=== PATIENT | male | born 1955 | race Hispanic/Latino ===

== ENCOUNTER 2019-11-02 10:06 | Emergency (ER) | payer OTHER, MEDICARE ==
[2019-11-02] MEDS ORDERED: Oxymetazoline HCl 0.05% (30 ML BOT) ONE (11:31)
[2019-11-02 11:39] LABS: #Basophils 0.1 thou/uL (0.0-0.2); #Eosinphils 0.2 thou/uL (0.0-0.7); #Lymphocytes 1.2 thou/uL (1.20-3.40); #Monocytes 1.2 thou/uL (0.11-0.59); #Neutrophils 10.4 thou/uL (1.40-6.50); %Basophils 0.5 % (0.0-1.0); %Eosinophils 1.6 % (0.0-10.0); %Lymphocytes 8.9 % (21.0-51.0); %Monocytes 8.9 % (0.0-10.0); %Neutrophils 80.1 % (42.0-75.0); Hemoglobin 9.6 g/dL (14.0-18.0); Mean Corpuscular HGB CONC 31.7 g/dL (32.0-36.0); Mean Corpuscular Hemoglobin 29.6 pg (27.0-31.0); Mean Corpuscular Volume 93.4 fL (78.0-98.0); Mean Platelet Volume 7.8 fL (7.4-10.4); Platelet Count 305 thou/uL (130-400); RBC Distribution Width 16.6 % (11.5-14.5); Red Blood Cell (RBC) Count 3.26 mill/uL (4.70-6.10); White Blood Cell (WBC) Count 12.9 thou/uL (4.8-10.8)
[2019-11-02 11:47] LABS: INR-International Normal Ratio 1.5; Prothrombin Time 17.6 sec (12.0-14.7)
[2019-11-02 11:48] LABS: PTT 40.1 sec (22.9-36.1)
== END 2019-11-02 13:14 | disposition home or self-care (01) ==
LOC: ERS 10:06
DX: R04.0 Epistaxis (principal); I11.0 Hypertensive heart disease with heart failure; I50.9 Heart failure, unspecified; F17.220 Nicotine dependence, chewing tobacco, uncomplicated; Z79.891 Long term (current) use of opiate analgesic; Z79.899 Other long term (current) drug therapy; Z86.718 Personal history of other venous thrombosis and embolism
CPT/HCPCS: 36415; 85025; 85610; 85730; 93005

== ENCOUNTER 2019-11-10 15:22 | Inpatient (IN) | payer OTHER, MEDICARE ==
[2019-11-10 16:17] LABS: #Eosinphils 0.5 thou/uL (0.0-0.7); #Lymphocytes 1.5 thou/uL (1.20-3.40); #Monocytes 0.9 thou/uL (0.11-0.59); #Neutrophils 7.8 thou/uL (1.40-6.50); %Basophils 0.2 % (0.0-1.0); %Eosinophils 4.4 % (0.0-10.0); %Lymphocytes 14.2 % (21.0-51.0); %Monocytes 8.5 % (0.0-10.0); %Neutrophils 72.7 % (42.0-75.0); Mean Corpuscular HGB CONC 30.5 g/dL (32.0-36.0); Mean Corpuscular Hemoglobin 28.1 pg (27.0-31.0); Mean Corpuscular Volume 92.1 fL (78.0-98.0); Mean Platelet Volume 6.8 fL (7.4-10.4); Platelet Count 358 thou/uL (130-400); RBC Distribution Width 16.2 % (11.5-14.5); Red Blood Cell (RBC) Count 2.83 mill/uL (4.70-6.10); White Blood Cell (WBC) Count 10.7 thou/uL (4.8-10.8)
[2019-11-10 16:38] LABS: ALT (SGPT) 10 U/L (8-55); AST (SGOT) 30 U/L (5-34); Albumin 2.7 g/dL (3.4-4.8); Alkaline Phosphatase 94 U/L (40-110); Anion Gap 11 mmol/L (10-20); BUN (Urea Nitrogen) 24 mg/dL (8.4-25.7); Bilirubin, Total 0.3 mg/dL (0.2-1.2); Calc. Creatinine Clearance 0 mL/min (70-130); Calcium 7.4 mg/dL (7.8-10.44); Carbon Dioxide 27 mmol/L (23-31); Chloride 101 mmol/L (98-107); Estimated GFR-MDRD 39; Glucose 111 mg/dL (80-115); Lipase 95 U/L (8-78); Potassium 3.5 mmol/L (3.5-5.1); Protein, Total 5.7 g/dL (5.8-8.1); Sodium 135 mmol/L (136-145)
[2019-11-10] MEDS ORDERED: Pantoprazole 40 MG VIAL ONE (16:42)
[2019-11-10] MEDS ORDERED: Pantoprazole 80 MG, Admixture Fee 1 EACH in Sodium Chloride 0.9% 100 ML IVPB SCH (16:45)
[2019-11-10 18:02] LABS: Hemoglobin 7.9 g/dL (14.0-18.0); Platelet Count 399 thou/uL (130-400)
--- NOTE | 2019-11-10 18:31 | PDOC.HHP ---
Hospitalist Results - Labs Result Diagrams: 11/10/19 17:40 11/10/19 16:07 Lab results: WBC 10.7 thou/uL (4.8-10.8) 11/10/19 16:07 Hgb 7.9 g/dL (14.0-18.0) L 11/10/19 17:40 Hct 26.0 % (42.0-52.0) L 11/10/19 17:40 MCV 92.1 fL (78.0-98.0) 11/10/19 16:07 Plt Count 399 thou/uL (130-400) 11/10/19 17:40 Neutrophils % 72.7 % (42.0-75.0) 11/10/19 16:07 Sodium 135 mmol/L (136-145) L 11/10/19 16:07 Potassium 3.5 mmol/L (3.5-5.1) 11/10/19 16:07 Chloride 101 mmol/L (98-107) 11/10/19 16:07 Carbon Dioxide 27 mmol/L (23-31) 11/10/19 16:07 BUN 24 mg/dL (8.4-25.7) 11/10/19 16:07 Creatinine 1.76 mg/dL (0.7-1.3) H 11/10/19 16:07 Glucose 111 mg/dL (80-115) 11/10/19 16:07 Calcium 7.4 mg/dL (7.8-10.44) L 11/10/19 16:07 Total Bilirubin 0.3 mg/dL (0.2-1.2) 11/10/19 16:07 AST 30 U/L (5-34) 11/10/19 16:07 ALT 10 U/L (8-55) 11/10/19 16:07 Alkaline Phosphatase 94 U/L (40-110) 11/10/19 16:07 Serum Total Protein 5.7 g/dL (5.8-8.1) L 11/10/19 16:07 Albumin 2.7 g/dL (3.4-4.8) L 11/10/19 16:07 Lipase 95 U/L (8-78) H 11/10/19 16:07
[2019-11-10 19:22] LABS: Hemoglobin 7.9 g/dL (14.0-18.0); Platelet Count 370 thou/uL (130-400)
--- NOTE | 2019-11-10 19:22 | HP ---
CHIEF COMPLAINT: GI bleed. 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 He noticed bright red blood in the stool on Saturday morning. He thought it will get better. Yesterday, he actually went to see his primary care and no acute events. However, this morning he noted that gush of blood came per rectum, prompted him to come to the ER. The patient had a similar episode on October 23 for a similar complaint. At that time, he had an EGD with a bipolar cauterization of Dieulafoy lesion. Currently, his hemoglobin is 8.0. Repeat hemoglobin level 7.9. He is tachycardiac. His last hemoglobin is 9.6 in October 2019. Continue with Protonix drip and monitor him for observation. GI on-call Dr. Goetz has been consulted. ALLERGIES: HE HAS NO KNOWN DRUG ALLERGY. REVIEW OF SYSTEMS: The patient denies any abdominal pain. No nausea or emesis. No recent history of fever, night sweats, chills, productive cough. Denies any tingling or numbness in his extremities. Other than, he has underlying history of scleroderma with tips of the fingers being dark. Denies any acute headache or blurriness. Denies any new rash in his body. No recent diarrhea. PAST MEDICAL HISTORY: 1. 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 2. Combined systolic and diastolic CHF. 3. Atrial fibrillation, on Eliquis; history of DVT, on Eliquis. 4. Peripheral vascular disease. 5. Scleroderma. 6. Hypertension. 7. Chronic kidney disease, stage 3. Follows [address] Dodge. MEDICATIONS: 1. Coreg 6.25 twice a day. 2. Lasix 40 mg daily. 3. Albuterol as needed. 4. Eliquis 5 mg twice a day. 5. Plavix 75 mg daily. 6. Cardizem CD 120 mg daily. 7. Ferrous sulfate 325 mg three times a day. 8. Folic acid 0.8 mg daily. 9. Protonix 40 mg daily. 10. Potassium chloride 20 mEq daily. 11. Rosuvastatin 20 mg daily. SOCIAL HISTORY: The patient does not smoke. Occasional alcohol use. FAMILY HISTORY: Both parents . Mother at age 97. Father had bladder cancer. PHYSICAL EXAMINATION: VITAL SIGNS: Temperature 99.9, pulse 112, blood pressure 135/62, saturating 95 % on room air. GENERAL: The patient is alert and oriented. He is in little distress with what is going on. His fingers being kind of discolored, especially on the right hand. CARDIOVASCULAR: Regular rate and rhythm without murmurs, rubs, or gallops. LUNGS: Clear to auscultation bilaterally with no wheezing, rales, or rhonchi. ABDOMEN: Soft, nontender, nondistended. Good bowel sounds. EXTREMITIES: As noted above. No focal deficits. LABORATORY DATA: His CMP panel in the normal range except lipase of 95 and sodium of 135, creatinine 1.76. WBC 10.7, hemoglobin 8.0, platelet is 358,000. IMPRESSION AND PLAN: This is a 64-year-old male presenting with the followin. History of gastrointestinal bleed. 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 2. His hemoglobin is decreased from 9.6 to 8. A type and cross has been done. We will transfuse if the repeat hemoglobin is less than 8. 3. Continue the Protonix drip. GI consult, Dr. Goetz has been consulted. Holding his Plavix as well as Eliquis for now. 4. H and H x3. 5. Combined systolic and diastolic heart failure. He has been evaluated by Dr. Walsh during the last admission. He had an echo done showing EF of 30%, elevated right ventricular systolic pressure as well as diastolic dysfunction. At this time, we will continue with his cardiac medications except Plavix and Eliquis. 6. Atrial fibrillation. Currently, his rate is slightly high. I will provide Lopressor IV p.r.n. to keep the heart rate below 90. 7. Peripheral vascular disease. Again, holding his Plavix. Continue with statin. 8. Chronic kidney disease, stage 3 and scleroderma, stable. If the clinical progression dictates, then consider consulting Cardiology as well as Nephrology , Dr. Dodge. 9. Gastrointestinal prophylaxis. He will be on Protonix drip. Deep vein thrombosis prophylaxis with SCDs. 10. Full code. Job ID: [id number] MTDD
[2019-11-10] MEDS: Carvedilol 6.25 MG TAB PO SCH (21:21)
[2019-11-10 22:06] VITALS: BMI 24.5
[2019-11-11] MEDS: Pantoprazole 80 MG in Sodium Chloride 0.9% 100 ML IVPB SCH ×2 (04:22→19:40)
[2019-11-11 05:43] LABS: Hemoglobin 7.1 g/dL (14.0-18.0); Platelet Count 343 thou/uL (130-400)
[2019-11-11 06:02] LABS: Anion Gap 12 mmol/L (10-20); BUN (Urea Nitrogen) 21 mg/dL (8.4-25.7); Calc. Creatinine Clearance 42 mL/min (70-130); Calcium 7.4 mg/dL (7.8-10.44); Carbon Dioxide 26 mmol/L (23-31); Chloride 104 mmol/L (98-107); Estimated GFR-MDRD 40; Glucose 87 mg/dL (80-115); Sodium 139 mmol/L (136-145)
[2019-11-11] MEDS: Carvedilol 6.25 MG TAB PO SCH ×2 (09:19→21:11)
[2019-11-11] MEDS: Rosuvastatin 20 MG TAB PO SCH ×2 (09:20→11:01)
[2019-11-11] MEDS ORDERED: Potassium Citrate 10 MEQ TAB PO SCH (09:45)
[2019-11-11] MEDS: Furosemide 40 MG TAB PO SCH (11:06)
[2019-11-11 12:03] LABS: SARS-CoV-2 MS2 Positive; SARS-CoV-2 N Gene Negative; SARS-CoV-2 S Gene Negative; SARS-CoV-2 by NAA Not Detected (NotDetected); SARS-CoV-2 orf1ab Negative
--- NOTE | 2019-11-11 13:43 | PDOC.HOSPP ---
- Subjective Encounter Date: 11/11/19 Encounter Time: 11:30 Subjective: He is doing well he is getting transfusion. GI consult pending. He is quite hungry and he is wondering when he can eat. - Objective Vital Signs & Weight: Vital Signs (12 hours) Temp Pulse Pulse Resp BP BP BP 11/11/19 12:40 97.7 F 91 16 143/83 H 11/11/19 11:01 94 152/83 H 11/11/19 10:15 98.0 F 93 16 152/83 H 11/11/19 10:00 98.0 F 94 16 144/79 H 11/11/19 09:20 94 119/69 11/11/19 09:19 119/69 11/11/19 08:00 11/11/19 07:24 97.9 F 94 16 119/69 11/11/19 04:00 98 20 151/89 H Pulse Ox 11/11/19 12:40 11/11/19 11:01 11/11/19 10:15 11/11/19 10:00 11/11/19 09:20 11/11/19 09:19 11/11/19 08:00 92 L 11/11/19 07:24 92 L 11/11/19 04:00 92 L Weight Weight 152 lb I&O: 11/10/19 11/11/19 11/12/19 06:59 06:59 06:59 Intake Total 1010 Output Total 575 Balance 435 Result Diagrams: 11/11/19 05:13 11/11/19 05:13 Hospitalist ROS - Medication Medications: Active Medications Generic Name Dose Route Start Last Admin Trade Name Marii PRN Reason Stop Dose Admin Carvedilol 6.25 mg 11/10/19 21:00 11/11/19 09:19 Coreg PO 6.25 mg BID ROSA Administration Diltiazem HCl 120 mg 11/11/19 09:00 11/11/19 11:01 Cardizem Cd PO 120 mg DAILY ROSA Administration Furosemide 40 mg 11/11/19 07:30 11/11/19 11:06 Lasix PO 40 mg DAILY-AC ROSA Administration Pantoprazole Sodium 80 mg/ 100 mls @ 10 mls/hr 11/10/19 17:22 11/11/19 04:22 Sodium Chloride IVPB 100 mls INF ROSA Administration Potassium Citrate 40 meq 11/11/19 09:45 11/11/19 11:00 Urocit K PO 11/11/19 14:00 40 meq NOW ROSA Administration Rosuvastatin Calcium 20 mg 11/11/19 09:00 11/11/19 11:01 Crestor PO 20 mg DAILY ROSA Administration - Exam General Appearance: NAD, awake alert Eye: PERRL ENT: normocephalic atraumatic Neck: supple Heart: RRR Respiratory: CTAB, normal chest expansion Gastrointestinal: soft, normal bowel sounds Neurological: no focal deficits Hosp A/P - Plan Upper GI bleed History of Dula Opal lesion in the gastric cardia -Status post PRBC transfusion -On Protonix drip. -N.p.o. Pending GI consult. -We will repeat the H&H after the transfusion. Combined systolic and diastolic heart failure -Last echo showing 30% EF -Plavix and Eliquis on hold. Peripheral vascular disease -Continue with the statin Chronic kidney disease stage III -Stable will be cautious with medications and renally dose as necessary. Full code
[2019-11-11 14:26] LABS: Hemoglobin 9.4 g/dL (14.0-18.0)
--- NOTE | 2019-11-11 14:38 | CON ---
DATE OF CONSULTATION: 11/11/2019 REASON FOR CONSULTATION: Hematochezia, anemia. CONSULTING PROVIDER: Samuel Tavares DO HISTORY OF PRESENT ILLNESS: The patient is a 64-year-old male with past medical history of systolic/diastolic congestive heart failure; chronic kidney disease, stage 3; hypertension; peripheral vascular disease; DVT; scleroderma; atrial fibrillation, on Eliquis; and recently diagnosed with a Dieulafoy lesion of the stomach, presenting with complaints of hematochezia. The patient was recently hospitalized at [facility] just a few weeks ago with complaints of melena. 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 He was ultimately discharged to home. In between then and now, the patient did have an episode of epistaxis, that required multiple trips to the ER in order to correct, but more recently in the last 2 to 3 days had been having complaints of hematochezia. He states that on Saturday he had a bowel movement that consisted primarily of blood, that was associated with fecal urgency, but no other additional symptoms. Over the next 24 to 48 hours, he had 2 to 3 additional bowel movements with decreasing amounts of blood until yesterday morning, when again he had a large bowel movement, consisting primarily of blood, that prompted him to seek healthcare assistance. Otherwise, the patient states that he has been doing well with no further problems or complaints. He currently denies any nausea, vomiting, fevers, chills, hematemesis, melena, abdominal pain, dysphagia, odynophagia, or weight loss. Of note, on readmission to the [facility] ER, he was noted to have a decrease in his hemoglobin and hematocrit when compared to his discharge hemoglobin and hematocrit, again concerning for acute GI bleeding. REVIEW OF SYSTEMS: A 10-category review of systems was obtained with all responses negative except for the pertinent positives as listed in HPI. PAST MEDICAL HISTORY: As per HPI. PAST SURGICAL HISTORY: 1. 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 2. Back surgery. FAMILY HISTORY: Denies any GI malignancies. SOCIAL HISTORY: Positive for chewing tobacco and was drinking approximately one glass of whiskey every 2 to 3 days up until a couple of weeks ago, but denies any illicit drug use. OUTPATIENT MEDICATIONS: Reviewed. ALLERGIES: NO KNOWN DRUG ALLERGIES. OBJECTIVE: VITAL SIGNS: Temperature 97.7, pulse 94, blood pressure 143/83, respiratory rate 16, and saturating 91% on room air. GENERAL: The patient was lying in bed, in no acute distress. Alert and oriented x4. HEENT: Normocephalic and atraumatic. Neck is supple. No JVD or scleral icterus noted. CARDIOVASCULAR: Regular rate and rhythm with no discernable murmurs, gallops, or rubs. RESPIRATORY: Diminished breath sounds auscultated in all lung acosta with poor inspiratory effort. ABDOMEN: Normoactive bowel sounds. Soft, nontender, and nondistended. EXTREMITIES: 1+/2+ lower extremity edema extending to the bilateral knees. Surgical change noted on the left foot. LABORATORY DATA: CBC with a white blood cell count of 10.7, hemoglobin 7.1, hematocrit 23.9, and platelets 343. Chemistry with a sodium of 139, potassium 3, chloride 104, CO2 of 26, BUN 21, creatinine 1.72, and glucose 87. AST 30, ALT 10, alkaline phosphatase 94, and total bilirubin 0.3. IMAGING DATA: No current GI imaging is available for review. ASSESSMENT AND PLAN: The patient is a 64-year-old male with past medical history of systolic/diastolic heart failure; chronic kidney disease, stage 3; hypertension; peripheral vascular disease; deep vein thrombosis; scleroderma; atrial fibrillation, on Eliquis (prior to this admission), in addition to recent diagnosis of Dieulafoy lesion in 10/2019, presenting with complaints of hematochezia. Hematochezia: The patient is presenting with a 2- to 3-day history of increasing hematochezia, characterized as bright red blood per rectum with bowel movements consisting primarily of blood, but sometimes with darker brown stool mixed in. This has not been associated with any additional symptoms as he currently denies any abdominal pain, hematemesis, or melenic stools. Since admission, he has not had any significant derangements in both his heart rate or his blood pressure, although his heart rate is borderline tachycardic at the current time. On comparison of his current hemoglobin and hematocrit compared to his discharge values, he has decreased somewhat again, concerning for active gastrointestinal bleeding. At this time, with the bright red blood per rectum that seems to be more related to a colonic origin, although with his recent diagnosis of a Dieulafoy lesion, an upper gastrointestinal bleed cannot necessarily be ruled out at this time. RECOMMENDATIONS: 1. Would continue to trend his hemoglobin and hematocrit and transfuse as necessary to maintain the hemoglobin and hematocrit of 7/21. 2. Continue to monitor clinically for signs of active GI bleeding. 3. Would transfer the patient to pantoprazole 40 mg IV b.i.d. for possible upper GI bleed. 4. We will place the patient on a clear liquid diet today with plans for GoLYTELY administration tonight in anticipation of both EGD and colonoscopy tomorrow. 5. Would plan for both EGD and colonoscopy on 11/12/2019 with further recommendations to follow endoscopy. We will continue to follow. Please call with any questions. Job ID: [id number]
--- NOTE | 2019-11-11 16:45 | PQF ---
CLINICAL DOCUMENTATION CLARIFICATION FORM: Dear Dr. Rain LAU Date: 11/11/2019 1633, 11/12/2019 9006, 11/13/2019 4224 Please exercise your independent, professional judgment in responding to the clarification form. Clinical indicators are provided on the bottom of this form for your review. Please check appropriate box(es): COMBINED SYSTOLIC / DIASTOLIC CONGESTIVE HEART FAILURE: A. ACUITY [ ] Acute [ ] Acute on Chronic [ x ] Chronic [ ] Hypertensive Heart and Kidney disease [ ] Hypertensive Heart Disease [ x] Hypertensive Kidney Disease [ ] Other diagnosis [ ] Unable to determine In addition, please specify: Present on Admission (POA): [ x] Yes [ ] No [ ] Unable to determine For continuity of documentation, please document condition throughout progress notes and discharge summary. Thank You. To be completed by CDI/Coding staff for physician review: CLINICAL INDICATORS - SIGNS / SYMPTOMS / LABS / RESULTS AND LOCATION IN EMR 11/09 H&P (GURUSAMY) 64 YEAR OLD MALE WITH A HISTORY OF KNOWN GI BLEED SECONDARY TO DIEULAFOY LESION IN THE GASTRIC CARDIA WELL COMBINED SYSTOLIC AND DIASTOLIC CHF, CHRONIC KIDNEY DISEASE, ATRIAL FIBRILLATION, ON ELIQUIS , AND A HISTORY OF DVT AND SCLERODERMA, PRESENTING WITH GI BLEED. -IMPRESSION AND PLAN: 5). COMBINED SYSTOLIC AND DIASTOLIC HEART FAILURE. HE HAD AN ECHO DONE SHOWING EF OF 30% RISKS FACTORS / RESULTS AND LOCATION IN EMR HX COMBINED SYSTOLIC AND DIASTOLIC CHF, HTN, CKD STAGE 3 (H&P/SAMY) 11/09 TREATMENTS / RESULTS AND LOCATION IN EMR PO LASIX ( 11/10-PRESENT) THANK YOU ! CDS Signature: GLORY LEGGETT RN Phone #: [phone] Date: 2019 This is a permanent part of the Medical Record [facility]
[2019-11-11] MEDS ORDERED: GoLYTELY 4,000 ml Bottle PO SCH (17:00)
--- NOTE | 2019-11-11 21:58 | PDOC.EVN ---
Event Note - Event Note Event Note: Notified by RN, patient wears a life vest and was told by ED to take it home. lives 2 hours away and unable to bring it back. He has not had it since admission. Day team notified and advised RN to contact Cardiology for recommendations. Several attempts made during the day and this evening to contact Cardiology. Due to no consultation in place they could not obtain recommendations from Cardio team. I have placed consult to cardiology and will transfer to Tele for cardiac monitoring.
[2019-11-12 04:39] LABS: #Eosinphils 0.5 thou/uL (0.0-0.7); #Lymphocytes 1.4 thou/uL (1.20-3.40); #Monocytes 0.6 thou/uL (0.11-0.59); #Neutrophils 7.1 thou/uL (1.40-6.50); %Basophils 0.4 % (0.0-1.0); %Eosinophils 5.3 % (0.0-10.0); %Lymphocytes 14.5 % (21.0-51.0); %Monocytes 6.6 % (0.0-10.0); %Neutrophils 73.2 % (42.0-75.0); Hemoglobin 9.6 g/dL (14.0-18.0); Mean Corpuscular HGB CONC 31.1 g/dL (32.0-36.0); Mean Corpuscular Hemoglobin 28.6 pg (27.0-31.0); Mean Corpuscular Volume 91.9 fL (78.0-98.0); Mean Platelet Volume 7.1 fL (7.4-10.4); Platelet Count 341 thou/uL (130-400); RBC Distribution Width 15.5 % (11.5-14.5); Red Blood Cell (RBC) Count 3.37 mill/uL (4.70-6.10); White Blood Cell (WBC) Count 9.6 thou/uL (4.8-10.8)
[2019-11-12] MEDS: Pantoprazole 80 MG in Sodium Chloride 0.9% 100 ML IVPB SCH (06:00)
[2019-11-12] MEDS ORDERED: Ondansetron HCl/PF 4 MG/2 ML Vial IVP PRN (09:35)
[2019-11-12] MEDS ORDERED: Promethazine HCl 25 MG/ML VIAL IM PRN (09:35)
[2019-11-12] MEDS ORDERED: Promethazine HCl 25 MG/ML VIAL SLOW IVP PRN (09:35)
[2019-11-12] MEDS ORDERED: Fentanyl 100 MCG/2 ML VIAL ONE (09:39)
[2019-11-12] MEDS ORDERED: PROPOFOL 200 MG/20 ML VIAL ONE (09:54)
[2019-11-12] MEDS ORDERED: Lidocaine 1% PF 5 ML VIAL ONE (09:54)
--- NOTE | 2019-11-12 10:33 | OP ---
DATE OF PROCEDURE: 11/12/2019 [employer] DEVELOPER SURGEON: None. PROCEDURES PERFORMED: 1. Esophagogastroduodenoscopy, diagnostic. 2. Colonoscopy, diagnostic. INDICATIONS: 1. Hematochezia. 2. Acute blood loss anemia. 3. Recent history of gastric Dieulafoy's lesion, cauterized earlier this month. MEDICATIONS: See Anesthesia record. FINDINGS: After discussion of the risks, benefits, and alternatives of the procedure, informed consent was obtained and witnessed. Pre-endoscopic cardiopulmonary examination was satisfactory. Time-out was performed before sedation was achieved. Sedation was achieved with Anesthesia assistance in the endoscopy unit. A Pentax adult upper endoscope was placed into the oropharynx and passed through the cricopharyngeus under direct visualization. The esophageal mucosa appeared normal throughout with a normal-appearing Z-line and no evidence of any varices. The endoscope was advanced into the stomach. Forward and retroflexed views of the entire gastric mucosa were obtained. There was no evidence of any old blood or active bleeding within the stomach. The gastric mucosa appears normal throughout with the exception of a small area within the gastric cardia with mild erythema and friability, representing the site of his recent endoscopic therapy for Dieulafoy's lesion. I see no evidence of visible vessel. No high-risk stigmata for bleeding in this area. It looks to be healing appropriately. The endoscope was advanced through the pylorus and into the first and second portions of the duodenum, which appeared unremarkable. The upper endoscope was completely withdrawn and the patient was repositioned. Digital rectal exam was performed, which was unremarkable except for some palpable hemorrhoidal tissue on digital exam. The Pentax adult colonoscope was inserted into the anus and passed forward to the cecum in the usual fashion. The cecal base was identified by the appendiceal orifice as well as the ileocecal valve. The terminal ileum was intubated and the ileal mucosa appeared normal. The colonoscope was slowly withdrawn in a gradual and circumferential manner with careful examination of the entire colonic mucosa. The quality of the prep was good. There was no evidence of any old blood or active bleeding throughout the entire colon or terminal ileum. The colonic mucosa appeared normal throughout. There were no polyps or mass lesions visualized. There was diverticulosis in the left side of the colon. Retroflexion in the rectum demonstrates [id number] internal hemorrhoids in fact there is a small amount of active oozing of blood from one of these hemorrhoids and this is felt to represent the location of his recent bleeding episodes. The colonoscope was completely withdrawn and the patient allowed to recover. The patient tolerated the procedure well. There were no immediate postprocedure complications. IMPRESSION: 1. Normal esophagogastroduodenoscopy. 2. [id number] internal hemorrhoids, with slow active oozing from one of these hemorrhoids. 3. Left-sided colonic diverticulosis. 4. No evidence of any old blood or active bleeding throughout the colon or terminal ileum. 5. Otherwise, normal colonoscopy to the terminal ileum. RECOMMENDATIONS: 1. Stool softener twice daily. 2. If the patient has recurrent clinically significant rectal bleeding, and anticoagulation is not able to be held or discontinued, then I would recommend getting a surgical consultation versus outpatient referral, for consideration of hemorrhoidectomy. 3. Advance diet. 4. GI will sign off at this time. Please call back with any questions or concerns. Job ID: [id number]
[2019-11-12] MEDS: Furosemide 40 MG TAB PO SCH (10:54)
[2019-11-12] MEDS: Rosuvastatin 20 MG TAB PO SCH (10:54)
[2019-11-12] MEDS: Carvedilol 6.25 MG TAB PO SCH ×2 (10:54→21:35)
--- NOTE | 2019-11-12 12:25 | PDOC.HOSPP ---
- Subjective Encounter Date: 11/12/19 Encounter Time: 10:20 Subjective: In seen this morning he returned from EGD. He is in telemetry monitoring. As long as he is in telemetry he does not need a LifeVest. Cardiology is a PA contacted me. If needed will consult them at this point it is okay for his to bring the LifeVest. His hemoglobin is stable at 9.6. in last admission EGD, he had a dulafoy lesion, we need to monitor him for 1 more day make sure that his hemoglobin is stable prior to discharge. will wait for present EGD report and GI input on dc plan. - Objective Vital Signs & Weight: Vital Signs (12 hours) Temp Pulse Resp BP BP Pulse Ox 11/12/19 10:42 97.7 F 90 12 158/81 H 96 11/12/19 10:28 97.7 F 96 20 163/85 H 95 11/12/19 04:20 97.4 F L 76 14 155/83 H 98 Weight Weight 152 lb I&O: 11/11/19 11/12/19 11/13/19 06:59 06:59 06:59 Intake Total 3550 Output Total 1775 Balance 1775 Result Diagrams: 11/12/19 04:11 11/11/19 05:13 Hospitalist ROS - Medication Medications: Active Medications Generic Name Dose Route Start Last Admin Trade Name Freq PRN Reason Stop Dose Admin Carvedilol 6.25 mg 11/10/19 21:00 11/12/19 10:54 Coreg PO 6.25 mg BID ROSA Administration Diltiazem HCl 120 mg 11/11/19 09:00 11/12/19 10:54 Cardizem Cd PO 120 mg DAILY ROSA Administration Furosemide 40 mg 11/11/19 07:30 11/12/19 10:54 Lasix PO 40 mg DAILY-AC ROSA Administration Pantoprazole Sodium 80 mg/ 100 mls @ 10 mls/hr 11/10/19 17:22 11/12/19 06:00 Sodium Chloride IVPB 100 mls INF ROSA Administration Rosuvastatin Calcium 20 mg 11/11/19 09:00 11/12/19 10:54 Crestor PO 20 mg DAILY ROSA Administration - Exam General Appearance: NAD, awake alert Eye: PERRL ENT: normocephalic atraumatic Neck: supple Heart: RRR Respiratory: CTAB, normal chest expansion Gastrointestinal: soft, normal bowel sounds Neurological: no focal deficits Psychiatric: A&O x 3 Hosp A/P - Plan Upper GI bleed History of Dula Opal lesion in the gastric cardia -Status post PRBC transfusion -On Protonix drip. -N.p.o. Pending GI consult. -We will repeat the H&H after the transfusion. Combined systolic and diastolic heart failure -Last echo showing 30% EF -Plavix and Eliquis on hold. Peripheral vascular disease -Continue with the statin Chronic kidney disease stage III -Stable will be cautious with medications and renally dose as necessary. Full code 30th As long as he is in telemetry he does not need a LifeVest. Cardiology PA contacted me. If needed will consult them, at this point it is okay for his to bring the LifeVest and keep it in the room. His hemoglobin is stable at 9.6. in last admission EGD, he had a dulafoy lesion, we need to monitor him for 1 more day make sure that his hemoglobin is stable prior to discharge. will wait for present EGD report and GI input on dc plan.
[2019-11-12] MEDS: Docusate 100 MG CAP PO SCH (21:36)
[2019-11-13 05:26] LABS: #Eosinphils 0.5 thou/uL (0.0-0.7); #Lymphocytes 1.7 thou/uL (1.20-3.40); #Monocytes 0.9 thou/uL (0.11-0.59); %Basophils 0.3 % (0.0-1.0); %Eosinophils 4.9 % (0.0-10.0); %Lymphocytes 16.7 % (21.0-51.0); %Neutrophils 69.1 % (42.0-75.0); Hemoglobin 8.9 g/dL (14.0-18.0); Mean Corpuscular HGB CONC 30.8 g/dL (32.0-36.0); Mean Corpuscular Hemoglobin 28.7 pg (27.0-31.0); Mean Platelet Volume 7.1 fL (7.4-10.4); Platelet Count 337 thou/uL (130-400); RBC Distribution Width 15.5 % (11.5-14.5); White Blood Cell (WBC) Count 10.1 thou/uL (4.8-10.8)
[2019-11-13] MEDS ORDERED: Sodium Chloride 0.9% 10 ML ONE (07:59)
[2019-11-13] MEDS: Carvedilol 6.25 MG TAB PO SCH (09:53)
[2019-11-13] MEDS: Docusate 100 MG CAP PO SCH (09:54)
[2019-11-13] MEDS: Rosuvastatin 20 MG TAB PO SCH (09:54)
[2019-11-13] MEDS: Furosemide 40 MG TAB PO SCH (09:54)
[2019-11-13 11:40] VITALS: BP 152/75; TEMP 98.2
--- NOTE | 2019-11-13 16:39 | DIS ---
DATE OF ADMISSION: 11/10/2019 DATE OF DISCHARGE: 11/13/2019 DISCHARGE DIAGNOSES: 1. Status post esophagogastroduodenoscopy and colonoscopy, showing normal esophagogastroduodenoscopy and [id number] internal hemorrhoids with slow active oozing. 2. Left-sided colonic diverticulosis. 3. Recent history of gastric Dieulafoy lesion cauterized earlier this month. 4. Acute blood loss anemia, requiring transfusion during this hospitalization. 5. Combined systolic and diastolic heart failure, not in exacerbation during this hospitalization and last echo showed 30% EF. He was on Plavix and Eliquis and that was hold during this stay and cleared by the GI that he can resume those medications. 6. Peripheral vascular disease. 7. Chronic kidney disease stage 3. DISCHARGE MEDICATIONS: 1. Albuterol 1 puff q.4 p.r.n. 2. Protonix 40 mg daily. 3. Folic acid 0.8 mg daily. 4. Plavix 75 mg daily. 5. Eliquis 5 mg twice a day. 6. Crestor 20 mg daily. 7. K-Dur 20 mEq daily. 8. Coreg 6.25 mg twice a day. 9. Cardizem 120 mg daily. 10. Lasix 40 mg daily. 11. Senokot two tablets daily given as a prescription as recommended by the GI. PHYSICAL EXAMINATION: VITAL SIGNS: On the day of discharge, his temperature is 98.2, pulse is 81, blood pressure is 152/75, and saturating 96% on room air. GENERAL: The patient is alert and oriented. He is comfortable. Discharge plan discussed and he has agreed. CARDIOVASCULAR: Regular rate and rhythm without murmurs, rubs, or gallops. LUNGS: Clear to auscultation bilaterally without wheezing, rales, or rhonchi. ABDOMEN: Soft, nontender, and nondistended. Good bowel sounds. EXTREMITIES: Without any pitting edema. HOSPITAL COURSE: This is a 64-year-old male with a history of systolic and diastolic CHF, chronic kidney disease stage 3, hypertension, peripheral vascular disease, DVT, and atrial fibrillation, on Eliquis and scleroderma, with recent diagnosis of Dieulafoy lesion earlier this month with the EGD and presented with hematochezia and anemia. Prior to admission, he had 3 days' duration of bright red blood per rectum and decided to come, the morning when he had a gush of blood per rectum. His hemoglobin dropped to 7.1, and we did 2 units of transfusion with appropriate rise in his hemoglobin with a level of 8.9 on the day of discharge. The patient did go through EGD and colonoscopy and findings as described above. GI cleared him to continue with his Eliquis. If he has recurrent hematochezia and hemodynamic instability, he needs to be evaluated for surgical resection of his internal hemorrhoids. That is their recommendations. The patient is discharged hemodynamically in stable condition. DISCHARGE INSTRUCTIONS: Activity as tolerated. Healthy heart diet. Follow up with PCP in 1 week. Please take stool softeners and try to have a daily bowel movement. If you see any bright red blood per rectum, please call the PCP or come to the ER right away. TIME SPENT: Discharge time took over 35 minutes. Job ID: [id number] [id number]
== END 2019-11-13 12:40 | disposition home or self-care (01) | DRG 394 ==
LOC: ERS 15:22 → T4-B 17:16 → 2NO 11-11 23:12
PROVIDERS: ADMIT Internal Medicine; ATTEND Internal Medicine
PROC: 30233N1 Transfusion of Nonautologous Red Blood Cells into Peripheral Vein, Percutaneous Approach (ICD-10-PCS; 2019-11-11)
PROC: 0DJ08ZZ Inspection of Upper Intestinal Tract, Via Natural or Artificial Opening Endoscopic (ICD-10-PCS; principal; 2019-11-12)
PROC: 0DJD8ZZ Inspection of Lower Intestinal Tract, Via Natural or Artificial Opening Endoscopic (ICD-10-PCS; 2019-11-12)
DX: K64.8 Other hemorrhoids (principal); I50.42 Chronic combined systolic (congestive) and diastolic (congestive) heart failure; I13.0 Hypertensive heart and chronic kidney disease with heart failure and stage 1 through stage 4 chronic kidney disease, or unspecified chronic kidney disease; D62 Acute posthemorrhagic anemia; Z11.59 Encounter for screening for other viral diseases; I48.91 Unspecified atrial fibrillation; I73.9 Peripheral vascular disease, unspecified; N18.3 Chronic kidney disease, stage 3 (moderate); K57.30 Diverticulosis of large intestine without perforation or abscess without bleeding; M34.9 Systemic sclerosis, unspecified; Z79.01 Long term (current) use of anticoagulants; Z86.718 Personal history of other venous thrombosis and embolism; Z89.422 Acquired absence of other left toe(s); Z87.19 Personal history of other diseases of the digestive system
CPT/HCPCS: 36415; 36430; 80048; 80053; 82274; 83690; 85014; 85018; 85025; 85049; 86850; 86900; 86901; 87635; 96365; 96376; C9113; J2704; J3010; J3490; P9016; U0003